=== PATIENT | female | born 1985 | race Two or more races ===

== ENCOUNTER 2018-10-25 23:45 | Emergency (ER) | payer SELFPAY ==
[~2018-10-25] VITALS: Ht 160 cm; Wt 74.8 kg
[2018-10-26] MEDS ORDERED: KETOROLAC 15 MG/ML VIAL. IM ONE (00:15)
[2018-10-26 00:55] LABS: BILIRUBIN,URINE NEGATIVE (NEG); CLARITY,URINE CLEAR; COLOR,URINE YELLOW; NITRITE,URINE NEGATIVE (NEG); PROTEIN,URINE NEGATIVE (NEG-TRACE)
[2018-10-26 01:02] LABS: BASO % 0 % (0-3); EOS # 0.1 x10^3/uL (0.0-0.7); EOS % 1 % (0-3); HEMATOCRIT 35.4 % (36.0-47.0); HEMOGLOBIN 11.4 g/dL (12.0-15.5); LYMPH # 1.2 x10^3/uL (1.0-4.8); LYMPH % 14 % (24-48); MEAN CORPUSCULAR HEMOGLOBIN 26 pg (25-35); MEAN CORPUSCULAR HGB CONC 32 g/dL (31-37); MEAN CORPUSCULAR VOLUME 81 fL (79-100); MONO # 0.5 x10^3/uL (0.0-1.1); MONO % 5 % (0-9); NEUT # 7.1 x10^3uL (1.8-7.7); NEUT % 80 % (31-73); PLATELET COUNT 342 x10^3/uL (140-400); RED BLOOD COUNT 4.35 x10^6/uL (3.50-5.40); RED CELL DISTRIBUTION WIDTH 13.5 % (11.5-14.5); WHITE BLOOD COUNT 8.8 x10^3/uL (4.0-11.0)
[2018-10-26 01:10] LABS: CALCIUM 8.5 mg/dL (8.5-10.1); CREATININE 0.6 mg/dL (0.6-1.0); GFR 114.4; POTASSIUM 3.8 mmol/L (3.5-5.1)
[2018-10-26 01:12] LABS: BACTERIA,URINE FEW /HPF (0-FEW); HYALINE CASTS, URINE FEW /HPF; SQUAMOUS EPITHELIAL CELL,UR FEW /LPF
[2018-10-26 01:14] LABS: ALBUMIN/GLOBULIN RATIO 0.7 (1.0-1.7); TOTAL BILIRUBIN 0.2 mg/dL (0.2-1.0); TOTAL PROTEIN 7.2 g/dL (6.4-8.2)
[2018-10-26 01:15] LABS: PROTHROMBIN TIME PATIENT 12.6 SEC (11.7-14.0)
[2018-10-26] MEDS ORDERED: CONTRAST GIVEN. MC PRN (01:30)
[2018-10-26] MEDS ORDERED: IOHEXOL 300 MG/ML 100ML VIAL. IV ONE (01:30)
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
[2018-10-26] MEDS ORDERED: CYCL5TAB PO (02:43)
[2018-10-26] MEDS ORDERED: ACET325T9 PO (02:43)
[2018-10-26 02:50] VITALS: BP 120/67
== END 2018-10-26 03:10 | disposition home or self-care (01) ==
LOC: ER 23:45
DX: O9A.211 Injury, poisoning and certain other consequences of external causes complicating pregnancy, first trimester (principal); O26.51 Maternal hypotension syndrome, first trimester; M54.2 Cervicalgia; Z3A.01 Less than 8 weeks gestation of pregnancy; V40.5XXA Car driver injured in collision with pedestrian or animal in traffic accident, initial encounter; Y93.89 Activity, other specified; Y92.410 Unspecified street and highway as the place of occurrence of the external cause; Y99.8 Other external cause status
CPT/HCPCS: 36415; 70450; 71260; 72125; 74177; 80053; 81001; 81025; 83605; 84702; 85025; 85610; 86900; 86901; 99284; G0480; Q9967

== ENCOUNTER 2020-01-03 18:41 | Emergency (ER) | payer MEDICAID, OTHER ==
[~2020-01-03] VITALS: Ht 157.5 cm; Wt 86.3 kg
[~2020-01-03 18:41] MED LIST: ACET325T9 PO; CYCL5TAB PO
[2020-01-03] MEDS ORDERED: IV NORMAL SALINE 1000ML BAG 1,000 ML IV SCH (19:05)
--- NOTE | 2020-01-03 19:17 | PHYS DOC ---
Past Medical History Past Medical History: No Pertinent History Additional Past Surgical Histo: gallstones Smoking Status: Never Smoker Alcohol Use: None Drug Use: None General Adult EDM: Chief Complaint: VAGINAL BLEEDING HPI: HPI: Patient is a 34 year old female, A2 who presents, stating her last menstrual cycle was October 16 and believes her self to be somewhere around 14 weeks . Patient states that she has had some lower abdominal cramping and spotting that started yesterday. She denies any pain with urination. She denies any fever. She also denies any vomiting or diarrhea. Patient has had no vaginal discharge. [] Review of Systems: Review of Systems: Constitutional: Denies fever or chills. [] Respiratory: Denies cough or shortness of breath. [] Cardiovascular: Denies chest pain or edema. [] GI: Complains of lower abdominal cramping without vomiting or diarrhea. [] : Denies dysuria. [] Neurologic: Denies headache, focal weakness or sensory changes. [] A full 10 point review of systems has been reviewed and is otherwise negative. Heart Score: Risk Factors: Risk Factors: DM, Current or recent (<one month) smoker, HTN, HLP, family history of CAD, obesity. Risk Scores: Score 0 - 3: 2.5% MACE over next 6 weeks - Discharge Home Score 4 - 6: 20.3% MACE over next 6 weeks - Admit for Clinical Observation Score 7 - 10: 72.7% MACE over next 6 weeks - Early Invasive Strategies Allergies: Allergies: Allergies Coded Allergies Type Severity Reaction Last Updated Verified No Known Drug Allergies 08/13/16 No Physical Exam: PE: Constitutional: Well developed, well nourished, no acute distress, non-toxic appearance. [] HENT: Normocephalic, atraumatic, bilateral external ears normal, oropharynx moist, no oral exudates, nose normal. [] Eyes: PERRLA, EOMI, conjunctiva normal, no discharge. [] Neck: Normal range of motion, no tenderness, supple, no stridor. [] Cardiovascular: Regular rate and rhythm [] Lungs & Thorax: Bilateral breath sounds clear to auscultation [] Abdomen: Bowel sounds normal, soft, no tenderness. [] Skin: Warm, dry, no erythema, no rash. [] Extremities: No tenderness, no cyanosis, no clubbing, ROM intact. [] Neurologic: Alert and oriented X 3, no focal deficits noted. [] Current Patient Data: Labs: Laboratory Tests Test 01/03/20 18:58 POC Urine HCG, Qualitative Hcg positive (Negative) EKG: EKG: [] Radiology/Procedures: Radiology/Procedures: [] Impression: PROCEDURE: OB <14 WKS W/TV Exam: Ultrasound OB less than 14 weeks Indication: with vaginal bleeding Technique: Real-time grayscale and color Doppler images of the pelvis were obtained by the department fashion designer. Comparisons: None FINDINGS: Uterus measures 9.9 x 5.4 x 4.8 cm. Within the endometrium there is a gestational sac with yolk sac and pole which measures 5 mm corresponding to 6 weeks 1 day gestation. heart rate measured at 113 bpm. Right ovary measures 3.6 x 3.2 x 2.5 cm. Left ovary measures 2.7 x 2.6 x 1.7 cm No free fluid. IMPRESSION: 1. Single live intrauterine gestation measuring 6 weeks 1 day by current ultrasound discordant with LMP. 2. Dedicated survey is recommended at 18-20 weeks gestation. Electronically signed by: Sosa Ayala MD (01/03/2020 8:23 PM) [id number] Course & Med Decision Making: Course & Med Decision Making Pertinent Labs and Imaging studies reviewed. (See chart for details) [] Dragon Disclaimer: Dragon Disclaimer: This electronic medical record was generated, in whole or in part, using a voice recognition dictation system. Departure Departure Impression: Primary Impression: Qualified Codes: Z3A.01 - Less than 8 weeks gestation of Disposition: HOME, SELF-CARE Condition: STABLE Referrals: ODETTE MEEKS MD (PCP) Patient Instructions: Abdominal Pain During , SAMARIA XIAO Jr. DO Jan 03, 2020 19:17
[2020-01-03 19:27] LABS: BILIRUBIN,URINE NEGATIVE (NEG); CLARITY,URINE CLEAR; COLOR,URINE YELLOW; NITRITE,URINE NEGATIVE (NEG); PROTEIN,URINE NEGATIVE (NEG-TRACE)
[2020-01-03 19:31] LABS: BACTERIA,URINE 0 /HPF (0-FEW); RBC,URINE 0 /HPF (0-2); SQUAMOUS EPITHELIAL CELL,UR MOD /LPF
[2020-01-03 19:32] LABS: WBC,URINE RARE /HPF (0-4)
[2020-01-03 19:40] LABS: BASO # 0.1 x10^3/uL (0.0-0.2); BASO % 1 % (0-3); EOS # 0.1 x10^3/uL (0.0-0.7); EOS % 1 % (0-3); HEMATOCRIT 32.8 % (36.0-47.0); HEMOGLOBIN 11.4 g/dL (12.0-15.5); LYMPH % 25 % (24-48); MEAN CORPUSCULAR HEMOGLOBIN 27 pg (25-35); MEAN CORPUSCULAR HGB CONC 35 g/dL (31-37); MEAN CORPUSCULAR VOLUME 78 fL (79-100); MONO # 0.6 x10^3/uL (0.0-1.1); MONO % 7 % (0-9); NEUT # 5.3 x10^3/uL (1.8-7.7); NEUT % 66 % (31-73); PLATELET COUNT 325 x10^3/uL (140-400); RED BLOOD COUNT 4.18 x10^6/uL (3.50-5.40); RED CELL DISTRIBUTION WIDTH 13.9 % (11.5-14.5); WHITE BLOOD COUNT 7.9 x10^3/uL (4.0-11.0)
[2020-01-03 19:45] LABS: CALCIUM 8.1 mg/dL (8.5-10.1); CREATININE 0.9 mg/dL (0.6-1.0); GFR 70.8; POTASSIUM 4.1 mmol/L (3.5-5.1)
[2020-01-03 19:51] LABS: ALBUMIN 3.1 g/dL (3.4-5.0); ALBUMIN/GLOBULIN RATIO 0.9 (1.0-1.7); MAGNESIUM 1.7 mg/dL (1.8-2.4); TOTAL BILIRUBIN 0.2 mg/dL (0.2-1.0); TOTAL PROTEIN 6.5 g/dL (6.4-8.2)
--- NOTE | 2020-01-03 20:26 | RAD ---
Exam: Ultrasound OB less than 14 weeks Indication: with vaginal bleeding Technique: Real-time grayscale and color Doppler images of the pelvis were obtained by the department senior loss control specialist. Comparisons: None FINDINGS: Uterus measures 9.9 x 5.4 x 4.8 cm. Within the endometrium there is a gestational sac with yolk sac and pole which measures 5 mm corresponding to 6 weeks 1 day gestation. heart rate measured at 113 bpm. Right ovary measures 3.6 x 3.2 x 2.5 cm. Left ovary measures 2.7 x 2.6 x 1.7 cm No free fluid. IMPRESSION: 1. Single live intrauterine gestation measuring 6 weeks 1 day by current ultrasound discordant with LMP. 2. Dedicated survey is recommended at 18-20 weeks gestation. Electronically signed by: Sosa Ayala MD (01/03/2020 8:23 PM) [id number]
[2020-01-03 21:23] VITALS: BP 106/58
== END 2020-01-03 21:23 | disposition home or self-care (01) ==
LOC: ER 18:41
DX: O26.851 Spotting complicating pregnancy, first trimester (principal); R10.30 Lower abdominal pain, unspecified; Z3A.01 Less than 8 weeks gestation of pregnancy
CPT/HCPCS: 36415; 76801; 76817; 80053; 81001; 81025; 83735; 84702; 85025; 87086; 99285; J7030

== ENCOUNTER 2020-04-06 14:30 | Observation (INO) | payer OTHER ==
[~2020-04-06] VITALS: Ht 160 cm; Wt 102.1 kg
[2020-04-06] MEDS ORDERED: IV RINGERS,LACTATED 1000ML 1,000 ML IV SCH (14:42)
[2020-04-06] MEDS ORDERED: ACETAMINOPHEN 325 MG TABLET. PO PRN (14:45)
[2020-04-06] MEDS ORDERED: ONDANSETRON PF 4 MG/2 ML VIAL. IVP PRN (14:45)
[2020-04-06 15:19] LABS: BILIRUBIN,URINE NEGATIVE (NEG); CLARITY,URINE CLEAR; COLOR,URINE YELLOW; NITRITE,URINE NEGATIVE (NEG); PH,URINE 6.5 (<5.0-8.0); PROTEIN,URINE NEGATIVE (NEG-TRACE)
[2020-04-06 15:23] LABS: RBC,URINE TNTC /HPF (0-2); SQUAMOUS EPITHELIAL CELL,UR MOD /LPF
[2020-04-06 15:25] LABS: BACTERIA,URINE FEW /HPF (0-FEW)
== END 2020-04-06 16:00 | disposition home or self-care (01) ==
LOC: 3 SO LND 14:30
PROVIDERS: ADMIT Obstetrics & Gynecology; ATTEND Obstetrics & Gynecology
DX: O46.92 Antepartum hemorrhage, unspecified, second trimester (principal); Z3A.20 20 weeks gestation of pregnancy; Z79.82 Long term (current) use of aspirin; Z79.899 Other long term (current) drug therapy
CPT/HCPCS: 81001; 87086; G0378; G0379